=== PATIENT | female | born 1985 | race Caucasian/White ===

== ENCOUNTER → 2018-03-05 13:56 | Outpatient (CLI) | payer OTHER, SELFPAY ==
[2018-03-05 21:25] LABS: Chlamydia Trachomatis by PCR Negative (Negative); Neisserai gonorrhoeae by PCR Negative (Negative); Probe Check PASS; Sample Adequacy Control PASS; Specimen Processing Control PASS
[2018-03-08 11:25] LABS: HPV Reflexed? NOT INDICATED
== END ==
PROVIDERS: Visit Provider Obstetrics & Gynecology
DX: Z12.4 Encounter for screening for malignant neoplasm of cervix (principal); Z11.3 Encounter for screening for infections with a predominantly sexual mode of transmission
CPT/HCPCS: 87491; 87591; 88175; G0145

== ENCOUNTER → 2018-03-27 09:53 | Outpatient (CLI) | payer OTHER, SELFPAY ==
[2018-03-27 12:24] LABS: Thyroid Stim Hormone (TSH) 3.27 uIU/mL (0.358-3.74)
[2018-03-27 12:30] LABS: Color, Urine Yellow (Yellow); Glucose, Dipstick Normal (Normal); Ketone-Dipstick Negative (Negative); Leukocyte Esterase-Dipstick Negative /ul (Negative); Nitrite-Dipstick Negative (Negative); Occult Blood-Urine Negative /ul (Negative); Protein-Dipstick Negative (Negative); Urine Bilirubin Dipstick Negative (Negative); Urine Clarity Sl. Cloudy (Clear); Urine Urobilinogen Normal (Normal)
[2018-03-27 12:41] LABS: Absolute Neutrophil Count 5.6 X10^3/uL (2.0-7.7); Basophil# 0.01 X10^3/uL; Basophil% 0.1 % (0-1); Eosinophil# 0.08 X10^3/uL; Hematocrit 42.5 % (37-47); Hemoglobin 14.2 g/dl (12.0-15.0); Lymphocyte % 19.6 % (19-41); Mean Corp Hgb Conc 33.4 g/gl (32-36); Mean Corpuscular Hgb 29.8 pg (27.0-32.0); Mean Corpuscular Volume 89.1 fL (81-99); Mean Platelet Vol. 11.6 fl (6.2-12.0); Monocyte# 0.49 X10^3/uL; Monocyte% 6.4 % (0-10); Neutrophil # 5.55 X10^3/uL (2.7-7.7); Neutrophil % 72.8 % (47-70); Platelet Count 217 K/mm3 (150-450); RBC Distribution Width CV 13.8 % (11.6-14.6); RBC Distribution Width SD 44.9 fl (35.1-43.9); Red Blood Count 4.77 M/mm3 (4.2-5.4); White Blood Count 7.6 K/mm3 (4.4-11.0)
[2018-03-27 12:49] LABS: POSITIVE COUNT NO; POSITIVE DIFFERENTIAL NO; POSITIVE MORPHOLOGY NO
[2018-03-27 13:05] LABS: HIV - WCH Non-Reactive (Nonreactive); Rubella IgG 157.7 IU/mL
[2018-03-28 08:11] LABS: HEPATITIS B SURFACE AG Negative (Negative); Hep C Antibodies 0.7 s/co ratio (0.0-0.9)
[2018-03-29 02:41] LABS: Prenatal RPR NONREACTIVE (NONREACTIVE)
== END ==
PROVIDERS: Visit Provider Obstetrics & Gynecology
DX: Z34.81 Encounter for supervision of other normal pregnancy, first trimester (principal); Z3A.00 Weeks of gestation of pregnancy not specified
CPT/HCPCS: 36415; 81002; 84443; 85025; 86703; 86762; 86803; 87340

== ENCOUNTER → 2018-08-14 11:11 | Outpatient (CLI) | payer OTHER, SELFPAY ==
[2018-08-14 13:59] LABS: Glucose Challenge Gest 1H 50g 95 mg/dL (70-140)
[2018-08-14 14:01] LABS: Hematocrit 38.7 % (37-47); Hemoglobin 12.6 g/dl (12.0-15.0); Mean Corp Hgb Conc 32.6 g/gl (32-36); Mean Corpuscular Hgb 29.1 pg (27.0-32.0); Mean Corpuscular Volume 89.4 fL (81-99); Mean Platelet Vol. 10.5 fl (6.2-12.0); Platelet Count 231 K/mm3 (150-450); RBC Distribution Width CV 13.7 % (11.6-14.6); RBC Distribution Width SD 45.2 fl (35.1-43.9); Red Blood Count 4.33 M/mm3 (4.2-5.4)
[2018-08-14 14:02] LABS: Scan Indicated on CBC? Y/N NO
--- OUTSIDE RECORDS SUMMARY | 2018-10-09 19:43 | XMS RPT_ITS ---
:1985 Author Organization OHIP Care Team Providers Name Role Phone NO PRIMARY CAREMD Primary Care Unavailable VERONIKA RUVALCABA Referring Unavailable LETHA DUARTE Attending Unavailable Veronika Ruvalcaba Attending Unavailable Veronika Ruvalcaba Referring Unavailable Veronika Ruvalcaba Attending Unavailable Veronika Ruvalcaba Attending Unavailable PROBLEMS PROBLEMS DATE TYPE CONDITION / CODE ATTENDING STATUS SOURCE 08/14/2018 Unknown Z34.83 - Veronika Ruvalcaba Active Omar Encounter for Community supervision of Hospital other normal Repository , third trimester / Z34.83(ICD-10) 03/27/2018 Unknown Z34.81 - Veronika Ruvalcaba Active Omar Encounter for Community supervision of Hospital other normal Repository , first trimester / Z34.81(ICD-10) PROCEDURES PROCEDURES No Procedure Records FoundRESULTS RESULTS GLUCOSE CHALLENGE GEST Collected: 08/14/2018 Status: F Source: [place] 1H 50G 11:20 AM [facility] REPOSITORY TYPE CODE TESTS RESULT OUT OF RANGE REFERENCE UNITS LAB L501.0250 70-140 mg/dL Normal GLU GEST 95 50g 1H Performed By: #### L501.0250 #### [facility] [address] [place], [place], [address] CBC-COMPLETE BLOOD CNT Collected: 08/14/2018 Status: F Source: [place] NO DIFF 11:20 AM [facility] REPOSITORY TYPE CODE TESTS RESULT OUT OF RANGE REFERENCE UNITS LAB L100.1000 4.4-11.0 K/mm3 Normal WBC 10.0 LAB L100.1200 4.2-5.4 M/mm3 Normal RBC 4.33 LAB L100.1300 12.0-15.0 g/dl Normal HGB 12.6 LAB L100.1400 37-47 % Normal HCT 38.7 LAB L100.1500 81-99 fL Normal MCV 89.4 LAB L100.1600 27.0-32.0 pg Normal MCH 29.1 LAB L100.1700 32-36 g/gl Normal MCHC 32.6 LAB L100.1810 11.6-14.6 % Normal RDW CV 13.7 LAB L100.1820 35.1-43.9 fl High RDW SD 45.2 LAB L100.1900 150-450 K/mm3 Normal PLT 231 LAB L100.2000 6.2-12.0 fl Normal MPV 10.5 Performed By: #### L100.0500 #### [facility] [address] [place], [place], [id number] THYROID STIM HORMONE Collected: 03/27/2018 Status: F Source: OMAR (TSH) 9:56 AM [facility] REPOSITORY TYPE CODE TESTS RESULT OUT OF RANGE REFERENCE UNITS LAB L501.9520 0.358-3.74 uIU/mL Normal TSH 3.27 Performed By: #### L501.9520 #### [facility] [address] [place], [place], [address] URINALYSIS, ROUTINE Collected: 03/27/2018 Status: F Source: OMAR (DIPSTICK) 9:56 AM [facility] REPOSITORY Order Comment: How was Urine Obtained? Urine, Random TYPE CODE TESTS RESULT OUT OF RANGE REFERENCE UNITS LAB L400.3000 Yellow COLOR Normal Yellow LAB L400.3050 Clear Normal CLARITY Sl. Cloudy LAB L400.3200 Normal mg/dl Normal GLUCOSE, UR Normal LAB L400.3300 Negative mg/dL Normal BILIRUBIN URINE Negative LAB L400.3400 Negative mg/dl Normal KETONE UR Negative LAB L400.3465 1.002-1.030 Normal SP.GR. DIPSTX 1.010 LAB L400.3550 5.0 - 8.0 pH UR Normal 7.0 LAB L400.3600 Negative mg/dl PROT Normal DIPSTX Negative LAB L400.3700 Normal mg/dl Normal UROBILI Normal LAB L400.3750 Negative Normal NITRITE UR Negative LAB L400.3780 Negative /ul Normal OCCULT BLOOD-UR Negative LAB L400.3800 Negative /ul LEUK Normal ESTERASE Negative Performed By: #### L400.2010 #### [facility] [address] [place], [address] CBC W/DIFF, AUTOMATED Collected: 03/27/2018 Status: F Source: [place] 9:56 AM [facility] REPOSITORY TYPE CODE TESTS RESULT OUT OF RANGE REFERENCE UNITS LAB L100.1000 4.4-11.0 K/mm3 Normal WBC 7.6 LAB L100.1200 4.2-5.4 M/mm3 Normal RBC 4.77 LAB L100.1300 12.0-15.0 g/dl Normal HGB 14.2 LAB L100.1400 37-47 % Normal HCT 42.5 LAB L100.1500 81-99 fL Normal MCV 89.1 LAB L100.1600 27.0-32.0 pg Normal MCH 29.8 LAB L100.1700 32-36 g/gl Normal MCHC 33.4 LAB L100.1810 11.6-14.6 % Normal RDW CV 13.8 LAB L100.1820 35.1-43.9 fl High RDW SD 44.9 LAB L100.1900 150-450 K/mm3 Normal PLT 217 LAB L100.2000 6.2-12.0 fl Normal MPV 11.6 LAB L100.2100 47-70 % High NEUT% 72.8 LAB L100.2200 19-41 % Normal LY% 19.6 LAB L100.2300 0-10 % Normal MONO% 6.4 LAB L100.2400 0-5 % Normal EO% 1.0 LAB L100.2500 0-1 % Normal BASO% 0.1 LAB L100.2550 0.0-0.9 % Normal IM GRAN % 0.100 Result Comment: IG% - Immature Granulocytes (promyelocytes, myelocytes and metamyelocytes) > 1% indicates that a LEFT SHIFT is Present. LAB L100.2620 2.0-7.7 X10 3/uL Normal Absolute Neut 5.6 LAB L100.2720 0.83-4.51 X10 3/ul Normal Absolute Lymph 1.50 Performed By: #### L100.0100 #### [facility] [address] [facility] [place], [address] RUBELLA IGG Collected: 03/27/2018 Status: F Source: [place] 9:56 AM [facility] REPOSITORY TYPE CODE TESTS RESULT OUT OF RANGE REFERENCE UNITS LAB L509.4000 IU/mL Normal Rubella IgG 157.7 Result Comment: Antibody results Interpretation of Immune Status < 5 IU/ml Presumed Non-immune 5 - < 10 IU/ml Equivocal > or = 10 IU/ml Presumed Immune Performed By: #### L509.4000, L3890.6005 #### [facility] [address] [facility] [address] HIV - WCH Collected: 03/27/2018 Status: F Source: [place] 9:56 AM [facility] REPOSITORY TYPE CODE TESTS RESULT OUT OF RANGE REFERENCE UNITS LAB L3890.6005 Nonreactive Normal HIV - WCH Non-Reactive Performed By: #### L509.4000, L3890.6005 #### [facility] [address] [facility]. [facility] [address] T AND S-NO Collected: 03/27/2018 Status: F Source: [place] CHARGE W/PNP 9:56 AM [facility] REPOSITORY Order Comment: Reason for Type AND Screen/Red Cells: Surgery? N TYPE CODE TESTS RESULT OUT OF RANGE REFERENCE UNITS LAB B10.0800 A Normal BLOOD POSITIVE TYPE GEL LAB B100.4050 Normal Ab SCREEN NEGATIVE GEL Performed By: #### B100.7550 #### [facility] [address] [place], [place], [address] HEPATITIS B SURFACE Collected: 03/27/2018 Status: F Source: [place] AG 9:56 AM [facility] REPOSITORY TYPE CODE TESTS RESULT OUT OF RANGE REFERENCE UNITS LAB L3100.0400 Negative Normal HB Negative SURF AG Result Comment: Performed at: [facility] Lab[address] [id number] Consulting Property Manager: Lit Monterroso PhD, Phone: [phone] Performed By: #### L3100.0390, L3100.0625 #### [facility] (refer to report for specific site) refer to report for address and phone number HEPATITIS C ANTIBODIES Collected: 03/27/2018 Status: F Source: [place] 9:56 AM [facility] REPOSITORY TYPE CODE TESTS RESULT OUT OF RANGE REFERENCE UNITS LAB L3100.0650 0.0-0.9 s/co ratio Normal HEP C AB 0.7 Result Comment: Negative: < 0.8 Indeterminate: 0.8 - 0.9 Positive: > 0.9 The CDC recommends that a positive HCV antibody result be followed up with a HCV Nucleic Acid Amplification test (606784). Performed By: #### L3100.0390, L3100.0625 #### [facility] (refer to report for specific site) refer to report for address and phone number RPR Collected: 03/27/2018 Status: F Source: [place] 9:56 AM [facility] REPOSITORY TYPE CODE TESTS RESULT OUT OF REFERENCE UNITS RANGE LAB L700.5100 NONREACTIVE Normal RPR NONREACTIVE Performed By: #### L700.5100 #### [facility] [address] [place], [place], [id number] CT/NG WCH BY PCR Collected: 03/05/2018 Status: F Source: [place] 9:45 AM [facility] REPOSITORY TYPE CODE TESTS RESULT OUT OF RANGE REFERENCE UNITS LAB L8200.2100 Negative Normal Chlam Negative Trac PCR LAB L8200.2200 Negative Normal NG by Negative PCR Performed By: #### L8200.2000 #### [facility] [address] [facility] [place], [address] PAP I-G W/RFX HRHPV Collected: 03/05/2018 Status: F Source: [place] 9:45 AM [facility] REPOSITORY Order Comment: CYTOLOGY INFORMATION: - CLINICAL INFORMATION: - DATE LMP/MENOPAUSE: LMP/ 01/18/18 - COLLECTION VIAL: Thin Prep Vial - TEAM SUPERVISOR SOURCE: CERVICAL/ENDOCERVICAL - COLLECTION TECHNIQUE: BRUSH/SPATULA Specimen Comment: [id number] Specimen Comment: No. of containers..01 ThinPrep Vial TYPE CODE TESTS RESULT OUT OF RANGE REFERENCE UNITS LAB L7400.0800 . Normal DIAGN Comment Result Comment: NEGATIVE FOR INTRAEPITHELIAL LESION AND MALIGNANCY. LAB L7400.0900 . Normal ADEQ Comment Result Comment: Satisfactory for evaluation. Endocervical and/or squamous metaplastic cells (endocervical component) are present. LAB L7400.1400 . Normal PERFORM Comment Result Comment: Rama Snow, Senior Sourcing Manager (ASCP) LAB L7400.2575 . Normal TEST METHOD Comment Result Comment: This liquid based ThinPrep(R) pap test was screened with the use of an image guided system. LAB L7400.2600 . Normal . COMM LAB L7400.2700 . Normal PAPSMR Comment Result Comment: The Pap smear is a screening test designed to aid in the detection of premalignant and malignant conditions of the uterine cervix. It is not a diagnostic procedure and should not be used as the sole means of detecting cervical cancer. Both false-positive and false-negative reports do occur. LAB L7400.2800 . Normal HPV RFLX Comment Result Comment: The HPV DNA reflex criteria were not met with this specimen result therefore, no HPV testing was performed. Performed at: - [facility] [id number] Consulting Property Manager: Rica Ferrara MD, Phone: [phone] Performed By: #### L7400.0350 #### [facility] (refer to report for specific site) refer to report for address and phone number ALLERGIES ALLERGIES DATE TYPE / CODE NAME / CODE REACTION SEVERITY SOURCE 03/15/2014 [facility] No Known [facility]F00 [facility] [address]133(SNOMED [id number](RXNOR Repository CT) M) ENCOUNTERS ENCOUNTERS ADMIT/DISCHARGE ACCOUNT ADMITTING ENCOUNTER LOCATION SOURCE NUMBER CLASS 08/14/2018 [id number] Ambulatory [facility] ing:WOBLAB Repository 06/11/2018 [id number] Ambulatory Building:[facility] Repository 03/27/2018 [id number] Ambulatory [facility] ing:WOBLAB Repository 03/05/2018 [id number] [facility] ing:[facility] Repository PAYERS PAYERS ENCOUNTER GUARANTOR PAYER SUBSCRIBER SOURCE 08/14/2018 ADDISON Rodriguez Primary FRANCK W Omar [id number] Insurance:MEDICAL SLATERDOB: [id number] [place] Number: Repository [address]Vrn: 330 [id number] [phone] (HP) Date:[id number] [address] [place] [phone]: 08/14/2018 Secondary NOT GIVENUNK [place] Insurance:SELF PAY [facility] Number: Effective Repository Date:2018-08-14 06/11/2018 ADDISON Kelvin FRANCK Jo [facility] SLATERDOB: Insurance:MEDICAL [id number] [facility] Repository GILMER Number: [place], [place] [id number] [phone]: [phone]) Date: 46 (HP) 03/27/2018 ADDISON Rodriguez Primary FRANCK W [place] [id number] Insurance:MEDICAL SLATERDOB: [facility] [id number] [place] Number: Repository [id number]: 330 [id number] [phone] (HP) Date:[id number] [address] [phone]: 03/27/2018 Secondary NOT GIVENUNK Omar Insurance:SELF PAY [facility] Number: Effective Repository Date:2018-03-27 03/05/2018 ADDISON Rodriguez Primary FRANCK [id number] Insurance:MEDICAL SLATERDOB: [facility] [id number] [place] Number: Repository [address]Vlp: [phone] [id number] () Date:5379-20-07VV [address] [place] [phone]: 03/05/2018 Secondary NOT GIVENCAMILO Lopez Insurance:SELF PAY [facility] Number: Effective Repository Date:2018-03-05
== END ==
PROVIDERS: Visit Provider Obstetrics & Gynecology
DX: Z34.83 Encounter for supervision of other normal pregnancy, third trimester (principal)
CPT/HCPCS: 36415; 82950; 85027

== ENCOUNTER → 2018-10-02 13:36 | Outpatient (CLI) | payer OTHER, SELFPAY ==
[2016-01-27 13:18] VITALS: BMI 34.7
--- OUTSIDE RECORDS SUMMARY | 2018-12-07 10:22 | XMS RPT_ITS ---
:1985 Author Organization OH[facility] Care Team Providers Name Role Phone LETHA DUARTE Attending Unavailable VERONIKA RUVALCABA Referring Unavailable NO PRIMARY CAREMD Primary Care Unavailable Veronika Ruvalcaba Attending Unavailable Veronika Ruvalcaba Attending Unavailable Veronika Ruvalcaba Referring Unavailable Veronika Ruvalcaba Attending Unavailable Veronika Ruvalcaba Attending Unavailable PROBLEMS PROBLEMS DATE TYPE CONDITION / CODE ATTENDING STATUS SOURCE 10/02/2018 Unknown Z36.85 - Encounter Veronika Ruvalcaba for Community screening for Hospital Streptococcus B / Repository Z36.85(ICD-10) 08/14/2018 Unknown Z34.83 - Encounter Veronika Ruvalcaba for supervision of Community other normal Hospital , third Repository trimester / Z34.83(ICD-10) 03/27/2018 Unknown Z34.81 - Encounter Veronika Ruvalcaba Active Shepherd for supervision of [facility] , first Repository trimester / Z34.81(ICD-10) PROCEDURES PROCEDURES No Procedure Records FoundRESULTS RESULTS Observed: 10/02/2018 Status: F Source: OMAR CULTURE, GROUP B 10:45 AM [facility] STREPTOCOCCUS REPOSITORY Comments: VAGINAL/RECTAL MOISES Culture Group B Beta Streptococcus is not isolated. Performed By: #### M100.1800 #### [facility] [address] [place], [address] GLUCOSE CHALLENGE GEST Collected: 08/14/2018 Status: F Source: OMAR 1H 50G 11:20 AM [facility] REPOSITORY TYPE CODE TESTS RESULT OUT OF RANGE REFERENCE UNITS LAB L501.0250 70-140 mg/dL Normal GLU GEST 95 50g 1H Performed By: #### L501.0250 #### [facility] [address] [place], [address] CBC-COMPLETE BLOOD CNT Collected: 08/14/2018 Status: F Source: OMAR NO DIFF 11:20 AM [facility] REPOSITORY TYPE CODE TESTS RESULT OUT OF [...] MPV 10.5 Performed By: #### L100.0500 #### [facility] [address] [place], [address] THYROID STIM HORMONE Collected: 03/27/2018 Status: F Source: OMAR (TSH) 9:56 AM [facility] REPOSITORY TYPE CODE TESTS RESULT OUT OF RANGE REFERENCE UNITS LAB L501.9520 0.358-3.74 uIU/mL Normal TSH 3.27 Performed By: #### L501.9520 #### [facility] [address] [place], [address] URINALYSIS, ROUTINE Collected: 03/27/2018 Status: F Source: OMAR (DIPSTICK) 9:56 AM [facility] REPOSITORY Order Comment: How was Urine Obtained? [...] ESTERASE Negative Performed By: #### L400.2010 #### [facility] [address] [place], [address] CBC W/DIFF, AUTOMATED Collected: 03/27/2018 Status: F Source: OMAR 9:56 AM [facility] REPOSITORY TYPE CODE TESTS RESULT OUT OF [...] Lymph 1.50 Performed By: #### L100.0100 #### [facility] [address] [facility] [address] [place], [place], [id number] RUBELLA IGG Collected: 03/27/2018 Status: F Source: PENN YAN 9:56 AM [facility] REPOSITORY TYPE CODE TESTS RESULT OUT OF RANGE REFERENCE UNITS LAB L509.4000 IU/mL Normal Rubella IgG 157.7 Result Comment: Antibody results Interpretation of Immune Status < 5 IU/ml Presumed Non-immune 5 - < 10 IU/ml Equivocal > or = 10 IU/ml Presumed Immune Performed By: #### L509.4000, L3890.6005 #### [facility] [address] [place], [place], [address] HIV - [facility] Collected: 03/27/2018 Status: F Source: PENN YAN 9:56 AM [facility] REPOSITORY TYPE CODE TESTS RESULT OUT OF RANGE REFERENCE UNITS LAB L3890.6005 Nonreactive Normal HIV - [facility] Non-Reactive Performed By: #### L509.4000, L3890.6005 #### [facility] [address] [facility] [place], [place], [address] T AND S-NO Collected: 03/27/2018 Status: F Source: PENN YAN CHARGE W/PNP 9:56 AM [facility] REPOSITORY Order Comment: Reason for Type AND Screen/Red Cells: Surgery? N TYPE CODE TESTS RESULT OUT OF RANGE REFERENCE UNITS LAB B10.0800 A Normal BLOOD POSITIVE TYPE GEL LAB B100.4050 Normal Ab SCREEN NEGATIVE GEL Performed By: #### B100.7550 #### [facility] [address] [place], [place], [id number] HEPATITIS B SURFACE Collected: 03/27/2018 Status: F Source: PENN YAN AG 9:56 AM [facility] REPOSITORY TYPE CODE TESTS RESULT OUT OF RANGE REFERENCE UNITS LAB L3100.0400 Negative Normal HB Negative SURF AG Result Comment: Performed at: - [facility] [id number] First Responder: Lit Monterroso PhD, Phone: [phone] Performed By: #### L3100.0390, L3100.0625 #### [facility] (refer to report for specific site) refer to report for address and phone number HEPATITIS C ANTIBODIES Collected: 03/27/2018 Status: F Source: OMAR 9:56 AM [facility] REPOSITORY TYPE CODE TESTS RESULT OUT OF RANGE REFERENCE UNITS LAB L3100.0650 0.0-0.9 s/co ratio Normal HEP C AB 0.7 Result Comment: Negative: < 0.8 Indeterminate: 0.8 - 0.9 Positive: > 0.9 The CDC recommends that a positive HCV antibody result be followed up with a HCV Nucleic Acid Amplification test (882438). Performed By: #### L3100.0390, L3100.0625 #### [facility] (refer to report for specific site) refer to report for address and phone number RPR Collected: 03/27/2018 Status: F Source: PENN YAN 9:56 AM [facility] REPOSITORY TYPE CODE TESTS RESULT OUT OF REFERENCE UNITS RANGE LAB L700.5100 NONREACTIVE Normal RPR NONREACTIVE Performed By: #### L700.5100 #### [facility] [address] [place], [address] CT/NG WCH BY PCR Collected: 03/05/2018 Status: F Source: PENN YAN 9:45 AM [facility] REPOSITORY TYPE CODE TESTS RESULT OUT OF RANGE REFERENCE UNITS LAB L8200.2100 Negative Normal Chlam Negative Trac PCR LAB L8200.2200 Negative Normal NG by Negative PCR Performed By: #### L8200.2000 #### [facility] [address] 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 of containers..01 ThinPrep Vial TYPE CODE TESTS RESULT OUT OF RANGE REFERENCE UNITS LAB L7400.0800 . Normal DIAGN Comment Result Comment: NEGATIVE FOR INTRAEPITHELIAL LESION AND MALIGNANCY. LAB L7400.0900 . Normal ADEQ Comment Result Comment: Satisfactory for evaluation. Endocervical and/or squamous metaplastic cells (endocervical component) are present. LAB L7400.1400 . Normal PERFORM Comment Result Comment: Rama Snow, Extruding Press Operator (ASCP) LAB L7400.2575 . Normal TEST METHOD [...] no HPV testing was performed. Performed at: [facility] [place] [id number] First Responder: Rica Ferrara MD, Phone: [phone] Performed By: #### L7400.0350 #### [facility] (refer to report for specific site) refer to report for address and phone number ALLERGIES ALLERGIES DATE TYPE / CODE NAME / CODE REACTION SEVERITY SOURCE 03/15/2014 Drug No Known Unknown [facility] Allergy/4160 Allergies/F00 Hospital [address](SNOMED 1841132(RXNOR Repository CT) M) ENCOUNTERS ENCOUNTERS ADMIT/DISCHARGE ACCOUNT ADMITTING ENCOUNTER LOCATION SOURCE NUMBER CLASS 10/02/2018 [id number] [facility] ing:[facility] Repository 08/14/2018 [id number] [facility] ing:WOBLAB Repository 06/11/2018 [id number] Ambulatory Building:[facility] Repository 03/27/2018 [id number] [facility] ing:WOBLAB Repository 03/05/2018 [id number] [facility] ing:[facility] Repository PAYERS PAYERS ENCOUNTER GUARANTOR PAYER SUBSCRIBER SOURCE 10/02/2018 ADDISON Rodriguez Primary FRANCK [id number] Insurance:MEDICAL SLATERDOB: [facility] [id number] Number: Repository [id number]: [phone]) [id number] [phone] () Date:[id number] [address] [place] [address]LC: 10/02/2018 [facility] Number: Effective Repository Date:2018-10-02 08/14/2018 ADDISON Rodriguez Primary FRANCK [id number] Insurance:MEDICAL SLATERDOB: [facility] [id number] Number: Repository [id number]: 330 [id number] [phone] (HP) Date:[id number] [address] [address]CD: 08/14/2018 Secondary NOT GIVENUNK Omar Insurance:SELF PAY [facility] Number: Effective Repository Date:2018-08-14 06/11/2018 ADDISON Primary FRANCK [facility] SLATERDOB: Insurance:MEDICAL [id number] [facility] Repository CONGRESS Number: [place], [place] [id number]: 330) Date: [phone] (HP) 03/27/2018 ADDISON Rodriguez Primary FRANCK W Omar [id number] Insurance:MEDICAL SLATERDOB: [facility] [id number] Number: Repository [id number]: [phone] [id number] [phone] (HP) Date:[id number] [address] [address]DU: 03/27/2018 Secondary NOT GIVENUNK Omar Insurance:SELF PAY [facility] Number: Effective Repository Date:2018-03-27 03/05/2018 ADDISON J Primary FRANCK W Shepherd [id number] Insurance:MEDICAL SLATERDOB: [facility] [id number] Number: Repository [id number]: [phone] [id number] [phone] (HP) Date:[id number] [address] [address]XA: 03/05/2018 Secondary NOT GIVENUNK Shepherd Insurance:SELF PAY [facility] Number: Effective Repository Date:2018-03-05
== END ==
PROVIDERS: Visit Provider Obstetrics & Gynecology
DX: Z36.85 Encounter for antenatal screening for Streptococcus B (principal)
CPT/HCPCS: 87081

== ENCOUNTER 2018-10-17 16:30 | Inpatient (IN) | payer OTHER, SELFPAY ==
[2016-01-27 13:18] VITALS: BMI 34.7
[2018-10-17 16:56] VITALS: BMI 35.1
[2018-10-17] MEDS: Lactated Ringers 1,000 ML 50 ML IV ×2 (17:00→18:06)
[2018-10-17 17:25] LABS: Hematocrit 39.2 % (37-47); Hemoglobin 12.5 g/dl (12.0-15.0); Mean Corp Hgb Conc 31.9 g/gl (32-36); Mean Corpuscular Hgb 28.3 pg (27.0-32.0); Mean Corpuscular Volume 88.7 fL (81-99); Mean Platelet Vol. 10.9 fl (6.2-12.0); Platelet Count 175 K/mm3 (150-450); RBC Distribution Width CV 14.8 % (11.6-14.6); RBC Distribution Width SD 48.2 fl (35.1-43.9); Red Blood Count 4.42 M/mm3 (4.2-5.4); White Blood Count 8.6 K/mm3 (4.4-11.0)
[2018-10-17 17:27] LABS: Scan Indicated on CBC? Y/N NO
[2018-10-17] MEDS: fentaNYL-bupivacaine (epidural) 100 ML BAG EPIDURAL (17:59)
[2018-10-17] MEDS: Oxytocin 30 units/NS 500 ml 30 UNITS/500 ML IV.SOLN 334 UNITS IV (19:29)
--- NOTE | 2018-10-17 19:49 | PCM.OB.VAG ---
- Problem List (1) 38 weeks gestation of Status: Acute (2) Vaginal after delivery Status: Acute Vaginal Delivery Maternal Presentation: Active Labor, Spontaneous Rupture of Membranes Amniotic Membrane Rupture Type: Spontaneous at home Rupture of Membrane time: 10/17/18 1515h Amniotic Fluid Description: Clear Final RADHA: 10/25/18 Final RADHA Source: US <20 weeks Gestational age: 38 Weeks and 6 Days Date of Procedure: 10/17/18 Pre-Operative Diagnosis: 38 6/7wga Post-Operative Diagnosis: 38 6/7wga Surgery/ Procedure Performed: Spontaneous Vaginal Delivery Anesthesiologist: Carol Nicole Type of Anesthesia: Epidural Description of Procedure: Patient was FD/+1 on my arrival with Cat I FHR. She pushed to deliver a vigorous male in JONO. The infant was placed on the maternal abdomen and further attended by nursery personnel. The placenta delivered spontaneously and appeared intact on inspection. IV pitocin was started. Cord gases were obtained. An intrauterine exam was performed with no palpable uterine defect. A first degree vaginal laceration was repaired with 3-0 Vicryl Rapide with excellent hemostasis. Sponge and needle counts were correct x 2. Presentation: Vertex Placental Delivery Description: Spontaneous Placenta Disposition: [facility] Cord Vessel Description: 3 Vessels Nuchal Cord Compression: Without compression Cord Gases drawn per routine: ABG, VBG Cord Entanglement: None Drain: Jenkins to straight drain Estimated Blood Loss: 250 ml Infant A gender: Male (1 minute): 9 (5 minute): 9 Episiotomy Description: None Laceration: Midline, Vaginal Extension/lac, 1st degree Medications given after delivery: IV Pitocin Complications: None
--- NOTE | 2018-10-17 19:58 | PCM.DCVAG ---
Discharge Diet: No Restrictions Discharge Activity: Return to Normal Activity, May Shower, May Take a Tub Bath May resume sexual activity in: 4-6 weeks Lifting Restrictions: 20-25lb Call your doctor if you observe: Fever of 101 or Higher, Inability to have a bowel movement, Using more than one pad per hour, Shortness of breath, Chest pain, Calf discomfort, Uncontrolled pain Additional Instructions: If you experience any of the following, contact your healthcare provider. Bleeding that soaks a pad every hour for 2 hours Fever 100.4 or higher Unrelieved incision or abdominal pain Swelling, redness, discharge or bleeding from your incision or episiotomy site Your incision begins to separate Problems urinating (including inability to urinate or burning while urinating). Visual changes Severe headache Flu-like symptoms Pain or redness in one of both of your breasts Pain, warmth, tenderness or swelling in your legs, especially the calf area Frequent nausea and vomiting Symptoms of depression or anxiety If you experience any of the following, call 911 or go to the nearest Emergency Room. Chest pain Problems breathing Seizure activity Partial or complete paralysis of a body part, slurred speech, weakness or drooping of the face, or a sudden inability to walk or hold your balance Allergies/Adverse Reactions: Allergies No Known Allergies Allergy (Verified 03/15/14 09:01) Medications to take at Discharge Vits [Prenatabs FA ] 1 tablet PO DAILY 03/15/14 Ibuprofen 600 mg PO TID PRN #30 tablet 10/17/18 The following prescriptions were given: Ibuprofen 600 mg PO TID PRN #30 tablet PRN Reason: Pain Please Follow Up With: Veronika Ruvalcaba MD When: 6 weeks Test Results: Test results from this visit will be discussed in further detail at your follow-up appointment, if applicable.
[2018-10-17] MEDS: Oxytocin 30 units/NS 500 ml 30 UNITS/500 ML IV.SOLN 167 UNITS IV (19:59)
--- NOTE | 2018-10-17 20:01 | DCINST_ITS ---
Discharge Diet: No Restrictions Discharge Activity: Return to Normal Activity, May Shower, May Take a Tub Bath May resume sexual activity in: 4-6 weeks Lifting Restrictions: 20-25lb Call your doctor if you observe: Fever of 101 or Higher, Inability to have a bow el movement, Using more than one pad per hour, Shortness of breath, Chest pain, Calf discomfort, Uncontrolled pain Additional Instructions: If you experience any of the following, contact your healthcare provider. * Bleeding that soaks a pad every hour for 2 hours * Fever 100.4 or higher * Unrelieved incision or abdominal pain * Swelling, redness, discharge or bleeding from your incision or episiotomy site * Your incision begins to separate * Problems urinating (including inability to urinate or burning while urinating). * Visual changes * Severe headache * Flu-like symptoms * Pain or redness in one of both of your breasts * Pain, warmth, tenderness or swelling in your legs, especially the calf area * Frequent nausea and vomiting * Symptoms of depression or anxiety If you experience any of the following, call 911 or go to the nearest Emergency Room. * Chest pain * Problems breathing * Seizure activity * Partial or complete paralysis of a body part, slurred speech, weakness or drooping of the face, or a sudden inability to walk or hold your balance Allergies/Adverse Reactions: Allergies No Known Allergies Allergy (Verified 03/15/14 09:01) Medications to take at Discharge Vits [Prenatabs FA ] 1 tablet PO DAILY 03/15/14 Ibuprofen 600 mg PO TID PRN #30 tablet 10/17/18 The following prescriptions were given: Ibuprofen 600 mg PO TID PRN #30 tablet PRN Reason: Pain Please Follow Up With: Veronika Ruvalcaba MD When: 6 weeks Test Results: Test results from this visit will be discussed in further detail at your follow- up appointment, if applicable.
[2018-10-17 22:24] VITALS: RESP 16; TEMP 37
[2018-10-18 00:15] VITALS: BP 117/54; PULSE 95; RESP 16; TEMP 37.4; O2SAT 94
[2018-10-18 04:00] VITALS: BP 111/55; PULSE 83; RESP 15; TEMP 37.1; O2SAT 97
[2018-10-18] MEDS: Senna/Docusate Sodium 1 Tablet PO (06:40)
[2018-10-18] MEDS: Ibuprofen 600 MG Tablet PO ×2 (06:41→20:55)
[2018-10-18 08:35] VITALS: BP 119/62; PULSE 65; RESP 18; TEMP 37; O2SAT 98
[2018-10-18] MEDS: Prenatal Vits Tablet 1 TABLET PO (10:03)
[2018-10-18 12:15] VITALS: BP 117/57; PULSE 68; RESP 18; TEMP 36.8; O2SAT 95
[2018-10-18 16:20] VITALS: BP 125/69; PULSE 72; RESP 18; TEMP 37; O2SAT 95
[2018-10-18 21:25] VITALS: BP 106/61; PULSE 72; RESP 16; TEMP 36.6; O2SAT 95
[2018-10-19 01:49] VITALS: BP 105/65; PULSE 67; RESP 15; TEMP 36.7; O2SAT 96
[2018-10-19 07:30] VITALS: BP 108/62; PULSE 67; RESP 16; TEMP 37.4; O2SAT 96
--- NOTE | 2018-10-19 08:54 | PCM.PN.OB ---
Patient Problems: Active and Suspected Problems 38 weeks gestation of (Acute) Subjective: Patient without complaints. Breast-feeding going well. Ready for release later today. - Physical Exam Vital Signs Temp Pulse Resp BP Pulse Ox 99.3 F H 67 16 108/62 96 10/19/18 07:30 10/19/18 07:30 10/19/18 07:30 10/19/18 07:30 10/19/18 07:30 Oxygen Delivery Method Room Air Weight: 222 lb 10.67 oz Body Mass Index (BMI) 35.1 Intake and Output for Last 24 Hours 10/17/18 10/18/18 10/19/18 23:59 23:59 23:59 Output Total 600 / 600 1000 / 1000 Balance -600 / -600 -1000 / -1000 Medical Necessity - Tobacco Use Smoking Status: Never smoker Assessment/Plan All Active Problems 38 weeks gestation of (Acute) Vaginal after delivery (Acute) Doing well day #2. Will release to home with routine instructions.
[2018-10-19] MEDS: Prenatal Vits Tablet 1 TABLET PO (10:03)
== END 2018-10-19 11:20 | disposition home or self-care (01) | DRG 807 ==
PROVIDERS: Admitting Provider Obstetrics & Gynecology; Referring Provider Obstetrics & Gynecology; Visit Provider Obstetrics & Gynecology
DX: O34.219 Maternal care for unspecified type scar from previous cesarean delivery (principal); O70.0 First degree perineal laceration during delivery; Z3A.38 38 weeks gestation of pregnancy; Z37.0 Single live birth
CPT/HCPCS: 59025; 59050; 85027; 86850; 86900; 99218; J7120; G0378

== ENCOUNTER → 2023-01-08 | Outpatient (CLI) | payer BC, SELFPAY ==
[2023-01-14 09:07] LABS: HPV APTIMA, High Risk Negative (Negative)
== END | disposition home or self-care (01) ==
LOC: LABSPEC 12:19
PROVIDERS: Referring Provider Registered Nurse; Visit Provider Registered Nurse
DX: Z12.4 Encounter for screening for malignant neoplasm of cervix (principal)
CPT/HCPCS: 87624; 88175; G0145